=== PATIENT | male | born 1980 | race African-American/Black ===

== ENCOUNTER 2017-10-21 17:16 | Emergency (ER) | payer OTHER ==
[~2017-10-21] VITALS: Ht 182.9 cm; Wt 114.0 kg
[2017-10-21] MEDS ORDERED: ACETAMINOPHEN 325MG TABLET PO ONE (18:45)
[2017-10-21 20:45] VITALS: BP 154/95
== END 2017-10-21 20:50 | disposition home or self-care (01) ==
LOC: ER 17:27
DX: R51 Headache (principal); R07.89 Other chest pain; M25.511 Pain in right shoulder; M25.562 Pain in left knee; I10 Essential (primary) hypertension; V49.88XA Car occupant (driver) (passenger) injured in other specified transport accidents, initial encounter; Y93.89 Activity, other specified; Y99.8 Other external cause status; Y92.410 Unspecified street and highway as the place of occurrence of the external cause
CPT/HCPCS: 99283